=== PATIENT | female | born 1990 | race Caucasian/White ===

== ENCOUNTER 2018-03-20 12:49 | Emergency (ER) | payer BC ==
[2018-03-20 12:57] VITALS: BP 124/73
--- NOTE | 2018-03-20 13:31 | ER Document Report ---
HPI - HPI Patient complains to provider of: eye itching Time Seen by Provider: 03/20/18 13:22 Onset: Other - 2 days Onset/Duration: Gradual Quality of pain: Burning Pain Level: 2 Context: Patient presents complaining of itchy eyes for the past 2 days. Patient states when she wakes up she has some crusting to the eyes but no matting and no excessive purulent drainage. Patient denies any use of contact lenses. Patient states she will occasionally wear glasses although not regularly. Patient denies any new foods medications or detergents. Patient reports a history of eczema and thought that her eczema might be flaring up on her face. Exacerbated by: Denies Relieved by: Denies Similar symptoms previously: No Recently seen / treated by doctor: No - ROS ROS below otherwise negative: Yes Systems Reviewed and Negative: Yes All other systems reviewed and negative - EENT EENT: REPORTS: Eye problems - REPRODUCTIVE Reproductive: DENIES: : - DERM Skin Color: Normal Skin Problems: Rash Past Medical History - General Information source: Patient - Social History Smoking Status: Current Every Day Smoker Smoking Education Provided: Yes Frequency of alcohol use: None Drug Abuse: None Occupation: retail Family History: Reviewed & Not Pertinent Pulmonary Medical History: Reports: Hx Asthma, Hx Pneumonia Skin Medical History: Reports Hx Eczema Psychiatric Medical History: Reports: Hx Anxiety Surgical Hx: Negative - Immunizations Hx Diphtheria, Pertussis, Tetanus Vaccination: Yes Vertical Provider Document - CONSTITUTIONAL Agree With Documented VS: Yes Exam Limitations: No Limitations General Appearance: WD/WN, No Apparent Distress - INFECTION CONTROL TRAVEL OUTSIDE OF THE [place] IN LAST 30 DAYS: No - HEENT HEENT: Atraumatic, Normocephalic Notes: PERRL, EOMI, lids everted, no ocular foreign body. - NECK Neck: Normal Inspection - RESPIRATORY Respiratory: No Respiratory Distress - MUSCULOSKELETAL/EXTREMETIES Musculoskeletal/Extremeties: MAEW - NEURO Level of Consciousness: Awake, Alert, Appropriate Motor/Sensory: No Motor Deficit - DERM Integumentary: Warm, Dry, Rash - Eczematous rash to face Course - Vital Signs Vital signs: Temp Pulse Resp BP Pulse Ox 98.2 F 71 20 124/73 98 03/20/18 12:55 03/20/18 12:55 03/20/18 12:55 03/20/18 12:55 03/20/18 12:55 Discharge - Discharge Clinical Impression: Allergic conjunctivitis Qualifiers: Laterality: bilateral Qualified Code(s): H10.13 - Acute atopic conjunctivitis, bilateral Condition: Stable Disposition: HOME, SELF-CARE Instructions: Conjunctivitis, Allergic, Eyedrop Use ([facility]) Additional Instructions: Return immediately for any new or worsening symptoms Followup with your primary care provider, call tomorrow to make a followup appointment Follow-up with ophthalmology for any persistent problems, call tomorrow for an appointment Prescriptions: Olopatadine HCl [Pataday] 1 drop OP DAILY #2.5 ml Forms: Return to Work Referrals: TISH DALTON MD [Primary Care Provider] - Follow up as needed OFFICE [facility] [Provider Group] - Follow up as needed
== END 2018-03-20 13:57 | disposition home or self-care (01) ==
LOC: ER 12:49
DX: H10.13 Acute atopic conjunctivitis, bilateral (principal); F17.200 Nicotine dependence, unspecified, uncomplicated
CPT/HCPCS: 99282